=== PATIENT | female | born 1955 | race Caucasian/White ===

== ENCOUNTER → 2016-06-30 | Outpatient (CLI) | payer BC ==
--- NOTE | 2016-06-30 16:48 | REP ---
Soft-tissue ultrasound left knee: Popliteal region: History: Lump on the back side of the left knee times 1 week Sonographic findings: Scanning of the over the palpable area of posterior knee demonstrates a some dermal hypoechoic lesion with a visible tract to the skin surface most compatible with sebaceous cyst. This measures 0.6 x 0.4 x 0.6 cm. There is enhanced through transmission. Low level internal echoes. Impression: Subdermal lesion at the site of the palpable lump most compatible with sebaceous cyst. Clinical follow-up is advised. Signed by David Mott MD 07/01/2016 02:58 P
== END ==
LOC: M RAD 10:49
PROVIDERS: ATTEND Surgery
DX: R22.41 Localized swelling, mass and lump, right lower limb (principal)